=== PATIENT | female | born 2000 | race Caucasian/White ===

== ENCOUNTER 2021-03-08 07:51 | Inpatient (IN) ==
[2021-03-08] MEDS ORDERED: Ondansetron 4 MG/2 ML VIAL IVP PRN (07:53)
[2021-03-08] MEDS ORDERED: Azithromycin 500 MG in 0.9 % Sodium Chloride 250 ML IVPB PRN (07:53)
[2021-03-08] MEDS ORDERED: Lidocaine 1% 20 ML MDV INFILT PRN (07:53)
[2021-03-08] MEDS ORDERED: Metoclopramide 10 MG/2 ML VIAL IVP PRN (07:53)
[2021-03-08] MEDS ORDERED: miSOPROStoL 25 MCG TABLET PO PRN (07:53)
[2021-03-08] MEDS ORDERED: Penicillin G Potassium 5,000,000 UNIT in 0.9 % Sodium Chloride Mini Bag 100 ML IVPB ONE (07:53)
[2021-03-08] MEDS ORDERED: Famotidine 20 MG/2 ML VIAL IVP PRN (07:53)
[2021-03-08] MEDS ORDERED: Naloxone 0.4 MG/ML INJ IVP PRN (07:53)
[2021-03-08] MEDS ORDERED: *HR* Nalbuphine 10 MG/ML AMPUL IV PRN (07:53)
[2021-03-08] MEDS: Ringers Solution, Lactated 1,000 ML IVC SCH ×2 (08:46→18:39)
[2021-03-08 09:03] LABS: Basophils % 0.4 %; Eosinophils # 0.1 K/mcL (0.0-0.6); Eosinophils % 0.9 %; Hematocrit 31.1 % (35.3-44.9); Hemoglobin 10.4 g/dL (11.5-15.4); Immature Granulocytes % 0.4 % (0-4); Lymphocytes # 2.2 K/mcL (0.6-4.6); Lymphocytes % 26.2 %; Mean Corpuscular HGB Conc 33.4 g/dL (31.6-35.5); Mean Corpuscular Hemoglobin 30.9 pg (28.0-33.3); Mean Corpuscular Volume 92.3 fL (83.0-100.0); Mean Platelet Volume 10.9 fL (9.4-12.4); Monocytes # 0.6 K/mcL (0.0-1.3); Monocytes % 7.3 %; Neutrophils # 5.6 K/mcL (1.6-8.9); Platelet Count 188 K/mcL (140-400); Red Blood Count 3.37 M/mcL (3.82-4.97); Red Cell Distribution Width 13.6 % (11.5-14.5); Segmented Neutrophils % 64.8 %; White Blood Count 8.6 K/mcL (4.3-11.1)
[2021-03-08] MEDS ORDERED: EPHEDrine 50 MG/ML VIAL IVP PRN (09:27)
[2021-03-08] MEDS ORDERED: Epidural Premix (fent/bupiv) 110 ML EP SCH ×2 (09:30→19:27)
[2021-03-08 10:08] LABS: Adenovirus Not Detected (Not Detect); Bordetella Pertussis Not Detected (Not Detect); Chlamydophila pneumoniae Not Detected (Not Detect); Coronavirus 229E Not Detected (Not Detect); Coronavirus HKU1 Not Detected (Not Detect); Coronavirus NL63 Not Detected (Not Detect); Coronavirus OC43 Not Detected (Not Detect); Human Metapneumovirus Not Detected (Not Detect); Human Rhinovirus/Enterovirus Not Detected (Not Detect); Influenza A Subtype 2009 H1 Not Detected (Not Detect); Influenza B Not Detected (Not Detect); Mycoplasma pneumoniae Not Detected (Not Detect); Parainfluenza Virus 1 Not Detected (Not Detect); Parainfluenza Virus 2 Not Detected (Not Detect); Parainfluenza Virus 3 Not Detected (Not Detect); Parainfluenza Virus 4 Not Detected (Not Detect); Respiratory Syncytial Virus Not Detected (Not Detect); SARS-CoV-2 Not Detected (Not Detect)
[2021-03-08 10:24] LABS: Amphetamine Screen,Urine Negative ng/mL (Cutoff=1000); Barbiturate Screen,Urine Negative ng/mL (Cutoff=200); Benzodiazepines Screen,Urine Negative ng/mL (Cutoff=200); Cannabinoid Screen,Urine Negative ng/mL (Cutoff = 50); Cocaine Screen,Urine Negative ng/mL (Cutoff= 300); Opiate Screen,Urine Negative ng/mL (Cutoff=300); Phencyclidine Screen,Urine Negative ng/mL (Cutoff=25)
[2021-03-08] MEDS: Penicillin G Potassium 2,500,000 UNIT/105 ML MLS IVPB SCH ×2 (12:22→16:35)
[2021-03-08] MEDS ORDERED: Oxytocin 20 units/ LR 1000 mL 20 UNIT/1,000 ML BAG IVC SCH (13:15)
[2021-03-08] MEDS ORDERED: Ropivacaine/PF 0.2% 20 ML VIAL ONE (18:39)
[2021-03-08] MEDS ORDERED: *HR* FentaNYL (PF) 100 MCG/2 ML VIAL ONE (18:39)
[2021-03-08] MEDS ORDERED: Bupivacaine-MPF 0.25% 10 ML VIAL ONE (22:52)
[2021-03-09] MEDS ORDERED: Ibuprofen 600 MG TABLET PO ONE (01:25)
[2021-03-09] MEDS ORDERED: Rho Immune Globulin 1,500 UNIT SYRINGE IM PRN (02:38)
[2021-03-09] MEDS ORDERED: Benzocaine/Menthol 56 GM AEROSOL SPRAY TP PRN (02:38)
[2021-03-09] MEDS ORDERED: Oxytocin 20 units/ LR 1000 mL 20 UNIT/1,000 ML BAG IVC ONE (02:38)
[2021-03-09] MEDS ORDERED: Lanolin 7 G OINT...G. TP PRN (02:38)
[2021-03-09] MEDS: Acetaminophen 325 MG TABLET PO PRN ×3 (03:03→20:06)
[2021-03-09] MEDS: Oxytocin 20 units/ LR 1000 mL 20 UNIT/1,000 ML BAG IVC SCH (03:06)
[2021-03-09] MEDS: Ibuprofen 600 MG TABLET PO PRN ×3 (08:56→22:35)
[2021-03-09] MEDS: Prenatal Vit/FA 1 EACH TABLET PO SCH (08:56)
[2021-03-10] MEDS: Acetaminophen 325 MG TABLET PO PRN (02:55)
[2021-03-10] MEDS: Ibuprofen 600 MG TABLET PO PRN (04:06)
[2021-03-10] MEDS: Prenatal Vit/FA 1 EACH TABLET PO SCH (07:58)
[2021-03-10] MEDS ORDERED: Ringers Solution, Lactated 1,000 ML IVC ONE (09:05)
[2021-03-10] MEDS ORDERED: GI Cocktail 40 ML EACH PO ONE (10:57)
[2021-03-10] MEDS: Ringers Solution, Lactated 1,000 ML IVC SCH (13:17)
[2021-03-10] MEDS: Oxytocin 20 units/ LR 1000 mL 20 UNIT/1,000 ML BAG IVC SCH (13:17)
[2021-03-10] MEDS ORDERED: Benzocaine/Menthol 56 GM AEROSOL SPRAY TP PRN ×2 (14:27→18:26)
[2021-03-10] MEDS ORDERED: Acetaminophen 325 MG TABLET PO PRN ×2 (14:27→18:26)
[2021-03-10] MEDS ORDERED: Lanolin 7 G OINT...G. TP PRN ×2 (14:27→18:26)
[2021-03-10] MEDS ORDERED: Ibuprofen 600 MG TABLET PO PRN ×2 (14:27→18:26)
[2021-03-10] MEDS ORDERED: Rho Immune Globulin 1,500 UNIT SYRINGE IM PRN ×2 (14:27→18:26)
[2021-03-10] MEDS ORDERED: Perflutren Lipid Microsphere 1.3 ML in 0.9 % Sodium Chloride 8.7 ML IVP PRN (14:55)
[2021-03-10 15:10] LABS: Basophils % 0.4 %; Eosinophils # 0.2 K/mcL (0.0-0.6); Hematocrit 30.1 % (35.3-44.9); Hemoglobin 9.7 g/dL (11.5-15.4); Immature Granulocytes % 0.7 % (0-4); Lymphocytes # 2.3 K/mcL (0.6-4.6); Lymphocytes % 25.4 %; Mean Corpuscular HGB Conc 32.2 g/dL (31.6-35.5); Mean Corpuscular Hemoglobin 30.7 pg (28.0-33.3); Mean Corpuscular Volume 95.3 fL (83.0-100.0); Mean Platelet Volume 11.4 fL (9.4-12.4); Monocytes # 0.7 K/mcL (0.0-1.3); Monocytes % 7.3 %; Neutrophils # 5.8 K/mcL (1.6-8.9); Platelet Count 194 K/mcL (140-400); Red Blood Count 3.16 M/mcL (3.82-4.97); Red Cell Distribution Width 13.7 % (11.5-14.5); Segmented Neutrophils % 64.2 %
[2021-03-10 15:34] LABS: Alanine Aminotransferase 13 Units/L (7-52); Albumin 2.9 g/dL (3.5-5.7); Albumin/Globulin Ratio 1.2 (1.1-2.2); Alkaline Phosphatase 141 Units/L (34-104); Aspartate Amino Transferase 20 Units/L (13-39); BUN/Creatinine Ratio 8 (6-26); Bilirubin,Total 0.2 mg/dL (0.3-1.0); Blood Urea Nitrogen 5 mg/dL (6-20); Calcium 8.1 mg/dL (8.6-10.3); Carbon Dioxide 22 mEq/L (23-29); Chloride 109 mEq/L (98-107); Globulin 2.5 g/dL (2.4-3.5); Glucose 74 mg/dL (70-105); Lactate Dehydrogenase 214 Units/L (140-271); Osmolality,Calculated 280 (280-300); Potassium 3.7 mEq/L (3.5-5.1); Sodium 137 mEq/L (136-145); Total Protein 5.4 g/dL (6.4-8.9); Troponin I < 0.03 ng/mL (< 0.04); Uric Acid 4.1 mg/dL (2.3-7.6); eGFR For African Americans > 60 (> 60); eGFR For Non-African Americans > 60 (> 60)
[2021-03-11 06:44] VITALS: BP 119/76
[2021-03-11] MEDS ORDERED: Prenatal Vit/FA 1 EACH TABLET PO SCH ×2 (09:00)
== END 2021-03-11 10:25 | disposition home or self-care (01) | DRG 806 ==
LOC: 1NENULAB 07:51 → 1NENUOBS 03-09 02:56 → 3ANU 03-10 13:51 → 1NENUOBS 03-10 18:27
PROVIDERS: ADMIT Obstetrics & Gynecology; ATTEND Obstetrics & Gynecology

== ENCOUNTER 2021-03-14 21:44 | Observation (INO) ==
[2021-03-14] MEDS ORDERED: Prochlorperazine 10 MG/2 ML VIAL IVP ONE (22:42)
[2021-03-14] MEDS ORDERED: 0.9 % Sodium Chloride 1,000 ML IVC ONE (22:42)
[2021-03-14 23:00] LABS: Basophils # 0.1 K/mcL (0.0-0.2); Basophils % 0.6 %; Eosinophils # 0.3 K/mcL (0.0-0.6); Eosinophils % 2.9 %; Hematocrit 36.5 % (35.3-44.9); Hemoglobin 11.9 g/dL (11.5-15.4); Immature Granulocytes % 0.6 % (0-4); Lymphocytes # 2.5 K/mcL (0.6-4.6); Lymphocytes % 25.9 %; Mean Corpuscular HGB Conc 32.6 g/dL (31.6-35.5); Mean Corpuscular Volume 91.9 fL (83.0-100.0); Mean Platelet Volume 9.6 fL (9.4-12.4); Monocytes # 0.6 K/mcL (0.0-1.3); Monocytes % 6.4 %; Neutrophils # 6.2 K/mcL (1.6-8.9); Platelet Count 355 K/mcL (140-400); Red Blood Count 3.97 M/mcL (3.82-4.97); Red Cell Distribution Width 13.2 % (11.5-14.5); Segmented Neutrophils % 63.6 %; White Blood Count 9.8 K/mcL (4.3-11.1)
[2021-03-14 23:13] LABS: Alanine Aminotransferase 15 Units/L (7-52); Albumin 3.9 g/dL (3.5-5.7); Albumin/Globulin Ratio 1.2 (1.1-2.2); Alkaline Phosphatase 134 Units/L (34-104); Aspartate Amino Transferase 13 Units/L (13-39); BUN/Creatinine Ratio 15 (6-26); Bilirubin,Direct 0.1 mg/dL (0.0-0.2); Bilirubin,Indirect 0.3 mg/dL (0.0-1.0); Bilirubin,Total 0.4 mg/dL (0.3-1.0); Blood Urea Nitrogen 10 mg/dL (6-20); Carbon Dioxide 23 mEq/L (23-29); Chloride 104 mEq/L (98-107); Globulin 3.3 g/dL (2.4-3.5); Glucose 80 mg/dL (70-105); Lactate Dehydrogenase 211 Units/L (140-271); Osmolality,Calculated 286 (280-300); Potassium 3.6 mEq/L (3.5-5.1); Sodium 139 mEq/L (136-145); Total Protein 7.2 g/dL (6.4-8.9); eGFR For African Americans > 60 (> 60); eGFR For Non-African Americans > 60 (> 60)
[2021-03-14 23:50] LABS: Bilirubin,Urine Negative (Negative); Blood,Urine Large (Negative); Clarity,Urine Ex.Turbid (Clear); Color,Urine Red (Yellow); Glucose,Urine (UA) Normal (Normal); Ketones,Urine Negative (Negative); Leukocyte Esterase,Urine Moderate (Negative); Nitrite,Urine Negative (Negative); Protein,Urine 200 mg/dL (Neg-Trace); Specific Gravity,Urine 1.015 (1.010-1.025); Urobilinogen,Urine Normal (Normal)
[2021-03-15] MEDS ORDERED: *HR* Labetalol 20 MG/4 ML SYRINGE IVP ONE ×2 (00:03→00:16)
[2021-03-15] MEDS ORDERED: *HR* Labetalol 20 MG/4 ML SYRINGE IVP PRN ×3 (01:51→01:55)
[2021-03-15] MEDS ORDERED: Calcium Gluconate 1,000 MG/10 ML VIAL IVP PRN (01:51)
[2021-03-15] MEDS ORDERED: Acetaminophen 325 MG TABLET PO PRN (01:53)
[2021-03-15] MEDS ORDERED: Lanolin 7 G OINT...G. TP PRN (01:55)
[2021-03-15] MEDS ORDERED: Benzocaine/Menthol 56 GM AEROSOL SPRAY TP PRN (01:55)
[2021-03-15] MEDS: Ringers Solution, Lactated 1,000 ML IVC SCH ×2 (02:36→16:48)
[2021-03-15] MEDS ORDERED: Ibuprofen 600 MG TABLET PO PRN (02:59)
[2021-03-15] MEDS: Magnesium Sulf 20 gm/SW 500mL 20 GM/500 ML IV.SOLN IVC SCH ×3 (03:13→23:00)
[2021-03-15] MEDS: Prenatal Vit/FA 1 EACH TABLET PO SCH (12:45)
[2021-03-15] MEDS: Acetaminophen/Butalbital/CaffeineTABLET PO PRN (14:31)
[2021-03-16] MEDS: Acetaminophen/Butalbital/CaffeineTABLET PO PRN (02:00)
[2021-03-16 05:44] LABS: Basophils # 0.1 K/mcL (0.0-0.2); Basophils % 0.7 %; Eosinophils # 0.2 K/mcL (0.0-0.6); Eosinophils % 2.2 %; Hemoglobin 11.8 g/dL (11.5-15.4); Immature Granulocytes % 0.4 % (0-4); Lymphocytes # 2.5 K/mcL (0.6-4.6); Lymphocytes % 31.6 %; Mean Corpuscular HGB Conc 32.8 g/dL (31.6-35.5); Mean Corpuscular Hemoglobin 30.3 pg (28.0-33.3); Mean Corpuscular Volume 92.3 fL (83.0-100.0); Mean Platelet Volume 9.5 fL (9.4-12.4); Monocytes # 0.6 K/mcL (0.0-1.3); Monocytes % 7.3 %; Neutrophils # 4.7 K/mcL (1.6-8.9); Platelet Count 360 K/mcL (140-400); Red Cell Distribution Width 13.2 % (11.5-14.5); Segmented Neutrophils % 57.8 %; White Blood Count 8.1 K/mcL (4.3-11.1)
[2021-03-16 05:49] LABS: Protein/Creatinine Ratio,Urine 0.75 mg/mg (0.00-0.20)
[2021-03-16 06:07] LABS: Alanine Aminotransferase 11 Units/L (7-52); Aspartate Amino Transferase 11 Units/L (13-39); BUN/Creatinine Ratio 10 (6-26); Blood Urea Nitrogen 7 mg/dL (6-20); Lactate Dehydrogenase 200 Units/L (140-271); Uric Acid 4.7 mg/dL (2.3-7.6); eGFR For African Americans > 60 (> 60); eGFR For Non-African Americans > 60 (> 60)
[2021-03-16] MEDS: Prenatal Vit/FA 1 EACH TABLET PO SCH (08:41)
[2021-03-16] MEDS ORDERED: NIFEdipine XL (24 HR) 30 MG TAB.ER.24 PO SCH (09:15)
[2021-03-16 11:54] VITALS: BP 156/85
== END 2021-03-16 13:32 | disposition home or self-care (01) ==
LOC: 1NENUOBS 21:44 → EMEROOARM 21:44 → 1NENUOBS 03-15 01:15
PROVIDERS: ADMIT Obstetrics & Gynecology; ATTEND Obstetrics & Gynecology